=== PATIENT | female | born 1945 | race Caucasian/White ===

== ENCOUNTER → 2020-06-15 | Outpatient (CLI) | payer MEDICARE | END | disposition short-term general hospital (02) | LOC: EMS 09:43 | PROVIDERS: ATTEND Surgery | DX: R07.9 Chest pain, unspecified (principal); R51.9 Headache, unspecified; R00.2 Palpitations | CPT/HCPCS: A0425; A0427 ==

== ENCOUNTER 2020-11-19 07:00 | Outpatient (CLI) | payer MEDICARE | END 2020-11-19 23:59 | disposition home or self-care (01) | LOC: COV 07:00 | PROVIDERS: ATTEND Ophthalmology | DX: Z01.812 Encounter for preprocedural laboratory examination (principal); H25.812 Combined forms of age-related cataract, left eye; Z20.822 Contact with and (suspected) exposure to COVID-19 ==

== ENCOUNTER 2020-11-22 08:18 | Day surgery (SDC) | payer MEDICARE ==
[~2020-11-22 08:18] MED LIST: BRIMONIDINE 0.2% OPHTH DROPS 5 ML ONE; BSS/LIDOCAINE/EPINEPHRINE 1 ML SYRINGE ONE; EPINEPHrine 1 MG/ML AMP ONE; KETOROLAC 0.45% OPHTH DROPS ONE; PROPARACAINE 0.5% OPHTH DROPS 15 ML ONE; TIMOLOL 0.5% OPHTH DROPS ONE; TRIAMCIN/MOXIFLOX OPHTHALMIC 0.6 ML VIAL IO ONE; VANCOMYCIN OPHTHALMI 8MG/0.8ML 8 MG/0.8 ML SYRINGE IO ONE
[2020-11-22] MEDS ORDERED: LACTATED RINGERS 500 ML IV ONE (09:29)
--- NOTE | 2020-11-22 09:48 | ANESTHESIA ---
Pre-Anesthesia VS, & Labs - Diagnosis left senile combined cataract - Procedure left cataract extraction with intraocular lens Vital Signs: Temp Pulse Resp BP Pulse Ox 36.5 C 85 18 135/81 H 97 11/22/20 09:12 11/22/20 09:12 11/22/20 09:12 11/22/20 09:12 11/22/20 09:12 Height: 5 ft 8 in Weight (kg): 95 kg Body Mass Index: 31.8 BMI Classification: Obese - NPO >8 hours - Is Patient ?: No Home Medications and Allergies Home Medications: Ambulatory Orders Aspirin Chewable [[facility] Aspirin] 81 mg PO DAILY 11/22/20 Chlorthalidone 25 mg PO DAILY 11/22/20 FLUoxetine [PROzac] 20 mg pe PO DAILY 11/22/20 Fexofenadine/Pseudoephedrine [Hm Allergy-Congest ER 60-120Mg] 60 mg PO DAILY 11/22/20 Levothyroxine [Synthroid] 25 mcg PO DAILY 11/22/20 Losartan [Cozaar] 25 mg PO DAILY 11/22/20 Omeprazole 20 mg PO DAILY 11/22/20 Potassium Chloride [Klor-Con] 20 meq PO DAILY 11/22/20 Aspirin Chewable [[facility] Jeremy Aspirin] 81 mg PO DAILY 11/22/20 Chlorthalidone 25 mg PO DAILY 11/22/20 FLUoxetine [PROzac] 20 mg pe PO DAILY 11/22/20 Fexofenadine/Pseudoephedrine [Hm Allergy-Congest ER 60-120Mg] 60 mg PO DAILY 11/22/20 Levothyroxine [Synthroid] 25 mcg PO DAILY 11/22/20 Losartan [Cozaar] 25 mg PO DAILY 11/22/20 Omeprazole 20 mg PO DAILY 11/22/20 Potassium Chloride [Klor-Con] 20 meq PO DAILY 11/22/20 Allergies/Adverse Reactions: Allergies Allergy/AdvReac Type Severity Reaction Status Date / Time gabapentin AdvReac Emesis Verified 11/21/20 15:50 Anes History & Medical History - Anesthetic History Anesthesia Complications: reports: No previous complications - Medical History Cardiovascular: reports: Atrial fibrillation, Other Pulmonary: reports: None Gastrointestinal: reports: GERD Urinary: reports: None Musculoskeletal: reports: None Endocrine/Autoimmune: reports: None Skin: reports: None History of Cancer?: No - Surgical History General: reports: Appendectomy, Colonoscopy Eyes Ears Nose Throat (EENT): reports: Tonsil/Adenoidectomy Gynecologic: reports: Tubal ligation Orthopedic: reports: Other Exam General: Alert, Oriented x3 Dental: WNL Neck Mobility: Normal Mallampati classification: II Respiratory: Lungs clear Plan Anesthesia Type: MAC Consent for Procedure(s) Verified and Reviewed: Yes Code Status: Attempt Resuscitation ASA classification: 2-Mild systemic disease Is this case an emergency?: No
[2020-11-22] MEDS ORDERED: MIDAZOLAM 2 MG/2 ML VIAL ONE (09:58)
[2020-11-22] MEDS ORDERED: BRIMONIDINE 0.2% OPHTH DROPS 5 ML OPTH ONE (10:22)
[2020-11-22] MEDS ORDERED: TIMOLOL 0.5% OPHTH DROPS OPTH ONE (10:23)
[2020-11-22] MEDS ORDERED: CHONDR SULF/HYALURONATE SYRINGE IO ONE (10:23)
[2020-11-22] MEDS ORDERED: EPINEPHrine 1 MG/ML AMP IR ONE (10:23)
[2020-11-22] MEDS ORDERED: BSS/LIDOCAINE/EPINEPHRINE 1 ML SYRINGE IO ONE (10:24)
[2020-11-22] MEDS ORDERED: PROPARACAINE 0.5% OPHTH DROPS 15 ML EACHEYE ONE (10:24)
[2020-11-22] MEDS ORDERED: TRIAMCIN/MOXIFLOX OPHTHALMIC 0.6 ML VIAL IO ONE (10:24)
[2020-11-22] MEDS ORDERED: VANCOMYCIN OPHTHALMI 8MG/0.8ML 8 MG/0.8 ML SYRINGE IO ONE (10:25)
[2020-11-22 10:46] VITALS: BP 105/81
--- NOTE | 2020-11-22 10:56 | OPERATIVE REPORT ---
DATE OF SERVICE: 11/22/2020 Physician: Rufus Thakkar MD PREOPERATIVE DIAGNOSIS: Visually significant cataract, left eye. This was her first cataract surger y. POSTOPERATIVE DIAGNOSIS: Visually significant cataract, left eye. This was her first cataract surge ry. PROCEDURE: Phacoemulsification with posterior chamber intraocular lens implant, left eye. SURGEON: Rufus Thakkar MD. ANESTHESIA: Monitored anesthesia care. COMPLICATIONS: None. 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 Best corrected visual acuity was 20/60 with glare to hand motion vision in the left eye. Indications for surgery are overall decrease in vision, diffi culty seeing words on a computer screen, difficulty reading, difficulty seeing words, closed caption or game scores on TV, difficulty driving at night because of headlights from other vehicles, and diff iculty with glare or bright lights in any situation. She was consented at length concerning risks an d benefits of cataract surgery, after which she expressed a desire to proceed with surgery. OPERATIVE PROCEDURE: The patient was taken into OR #3 and placed under monitored anesthesia care. A surgical timeout was conducted, confirming correct patient, correct procedure, and correct surgical site. She was given topical anesthesia and prepped and draped in usual sterile fashion. The eye was entered at the 6 and 3 o'clock positions. Intracameral Shugarcaine was injected into the anterior c hamber followed by Viscoat. A continuous-tear curvilinear capsulorrhexis was performed. The nucleus was hydrodissected and phacoemulsified. The cortex was evacuated using automated infusion and aspir ation. Provisc was injected in the capsular bag and a 23.0 diopter intraocular lens inserted into th e bag. Infusion and aspiration were used to evacuate the viscoelastic materials. The eye was inflat ed to physiologic pressure using balanced salt solution and found to be watertight. Approximately 0. 25 mL of a mixture of triamcinolone and moxifloxacin was injected transsclerally into the vitreous in the inferotemporal quadrant. An additional 0.55 mL of a mixture of triamcinolone, moxifloxacin, and vancomycin was injected subconjunctivally in the superior quadrant for infection and inflammation pr ophylaxis. Wound integrity was checked with Weck-Priyanka sponges. The patient was taken from the operat ing room in good condition and given postoperative instructions. TD: 11/22/2020 10:54
--- NOTE | 2020-11-22 11:13 | ANESTHESIA POST OP EVALUATION ---
Anesthesia Post Eval - Post Anesthesia Eval Vitals: Last Vital Signs Temp 36.4 C L 11/22/20 10:29 Pulse 88 11/22/20 10:44 Resp 23 11/22/20 10:44 BP 105/81 H 11/22/20 10:44 Pulse Ox 94 11/22/20 10:44 CV Function Including HR & BP: Stable Pain Control: Satisfactory Nausea & Vomiting: Negative Mental Status: Baseline Respiratory Status: Airway Patent Hydration Status: Satisfactory Anesthesia Complications: None
== END 2020-11-22 08:19 | disposition home or self-care (01) ==
LOC: SDS 08:18
PROVIDERS: ATTEND Ophthalmology
DX: H25.812 Combined forms of age-related cataract, left eye (principal); I48.91 Unspecified atrial fibrillation; I10 Essential (primary) hypertension; K21.9 Gastro-esophageal reflux disease without esophagitis; F32.9 Major depressive disorder, single episode, unspecified; E66.9 Obesity, unspecified; Z68.31 Body mass index [BMI] 31.0-31.9, adult; Z79.82 Long term (current) use of aspirin; Z79.899 Other long term (current) drug therapy; Z87.891 Personal history of nicotine dependence
CPT/HCPCS: 66984; A9270; J3490; J7120